=== PATIENT | male | born 1945 | race Caucasian/White ===

== ENCOUNTER 2019-05-01 09:53 | Emergency (ER) | payer OTHER ==
[~2019-05-01] VITALS: Ht 175.3 cm; Wt 74.8 kg
[~2019-05-01 09:53] MED LIST: NORCO 5-325 TA1 EACH PO; SIMVASTATIN20 MG PO; TAMSULOSIN HCL0.4 M1 PER TUBE
[2019-05-01 10:07] LABS: URINE BILIRUBIN NEGATIVE (Negative); URINE BLOOD 3+ (Negative); URINE COLOR YELLOW; URINE GLUCOSE-RANDOM* NEGATIVE (Negative); URINE KETONES TRACE (Negative); URINE LEUKOCYTES-REFLEX NEGATIVE (Negative); URINE NITRITE-REFLEX NEGATIVE (Negative); URINE PROTEIN (DIPSTICK) 1+ (Negative); URINE SPECIFIC GRAVITY >= 1.030 (1.005-1.035); URINE UROBILINOGEN 0.2 E.U./dl (0.2-1.0)
[2019-05-01 10:08] LABS: URINE CLARITY SL HAZY
[2019-05-01] MEDS ORDERED: ASA81BEC PO (10:18)
[2019-05-01 10:22] LABS: SQUAMOUS 0-3 Few /LPF (0-3)
[2019-05-01 10:25] LABS: CASTS None Seen /LPF (None Seen); CRYSTALS None Seen /LPF (None Seen)
[2019-05-01 10:35] LABS: BACTERIA-REFLEX 1-9 Few /HPF (None Seen); URINE WBC-REFLEX 0-5 Rare /HPF (0-5)
[2019-05-01 10:36] LABS: YEAST-REFLEX Present (None Seen)
[2019-05-01 10:56] LABS: HEMATOCRIT 47.7 % (42.0-52.0); MCH 31.7 pg (26.0-34.0); MCHC 33.6 g/dL (28.0-37.0); MCV 94.6 fL (80.0-100.0); RBC 5.04 mil/uL (4.50-6.00); RDW 13.5 % (10.5-14.5); WBC 15.5 thou/uL (4.0-11.0)
[2019-05-01 11:21] LABS: CALCIUM 9.6 mg/dL (8.5-10.1); CREATININE 1.1 mg/dL (0.7-1.3); POTASSIUM 4.4 mmol/L (3.5-5.1)
[2019-05-01 11:27] LABS: ALBUMIN 4.1 g/dL (3.4-5.0); TOTAL BILIRUBIN 0.8 mg/dL (<0.1-1.0); TOTAL PROTEIN 7.7 g/dL (6.4-8.2)
[2019-05-01 11:39] LABS: ABSOLUTE NEUTROPHILS 13.5 thou/uL (1.4-8.2)
[2019-05-01 11:40] LABS: ANISOCYTOSIS SLIGHT; PLATELET COUNT 142 thou/uL (150-400)
[2019-05-01] MEDS ORDERED: ZOFRAN ODT4 MG PO (12:07)
[2019-05-01] MEDS ORDERED: NORCO 5-325 TA1 EAC1 PO (12:07)
[2019-05-01 12:20] VITALS: BP 137/77
== END 2019-05-01 12:20 | disposition home or self-care (01) ==
LOC: ER 09:53
PROVIDERS: Emergency Medicine
DX: N20.0 Calculus of kidney (principal); Z79.899 Other long term (current) drug therapy; Z79.82 Long term (current) use of aspirin

== ENCOUNTER → 2020-01-02 | Outpatient (CLI) | payer OTHER ==
[~2020-01-02] MED LIST changes: +ASA81BEC PO; +NORCO 5-325 TA1 EAC1 PO; +ZOFRAN ODT4 MG PO
== END ==
LOC: SJCVCIMAG 09:21 → SJCVC 09:21 → SJCVCIMAG 11:10
PROVIDERS: ATTEND Internal Medicine Cardiovascular Disease
DX: I08.0 Rheumatic disorders of both mitral and aortic valves (principal); I25.10 Atherosclerotic heart disease of native coronary artery without angina pectoris; R00.1 Bradycardia, unspecified; E78.2 Mixed hyperlipidemia; Z79.82 Long term (current) use of aspirin; Z79.899 Other long term (current) drug therapy

== ENCOUNTER → 2020-07-01 | Outpatient (CLI) | payer OTHER | LOC: SJCVCIMAG 09:24 | PROVIDERS: ATTEND Internal Medicine Cardiovascular Disease | DX: I65.23 Occlusion and stenosis of bilateral carotid arteries (principal); I08.0 Rheumatic disorders of both mitral and aortic valves; I11.9 Hypertensive heart disease without heart failure; R94.31 Abnormal electrocardiogram [ECG] [EKG]; R00.1 Bradycardia, unspecified; I25.10 Atherosclerotic heart disease of native coronary artery without angina pectoris; E78.00 Pure hypercholesterolemia, unspecified; Z95.5 Presence of coronary angioplasty implant and graft; Z79.82 Long term (current) use of aspirin; Z79.899 Other long term (current) drug therapy ==

== ENCOUNTER → 2020-12-30 | Outpatient (CLI) | payer OTHER | LOC: SJCVC 09:46 | PROVIDERS: ATTEND Internal Medicine Cardiovascular Disease | DX: I25.10 Atherosclerotic heart disease of native coronary artery without angina pectoris (principal); I35.0 Nonrheumatic aortic (valve) stenosis; R00.1 Bradycardia, unspecified; I65.23 Occlusion and stenosis of bilateral carotid arteries; E78.00 Pure hypercholesterolemia, unspecified; E78.5 Hyperlipidemia, unspecified; Z79.82 Long term (current) use of aspirin; Z79.899 Other long term (current) drug therapy; Z82.49 Family history of ischemic heart disease and other diseases of the circulatory system ==